=== PATIENT | female | born 1985 | race Caucasian/White ===

== ENCOUNTER 2016-11-01 12:07 | Observation (INO) | payer OTHER, SELFPAY ==
[~2016-11-01] VITALS: Ht 170.2 cm; Wt 105.0 kg
[2016-11-01 13:01] LABS: BLOOD UREA NITROGEN 8 mg/dL (7-18)
[2016-11-01 13:04] LABS: ACETAMINOPHEN < 2 mcg/mL (10-30)
[2016-11-01 15:11] LABS: DAU SCREEN DISCLAIMER
[2016-11-01] MEDS ORDERED: ONDANSETRON ODT 4 MG PO PRN (17:30)
[2016-11-01] MEDS ORDERED: POLYETHYLENE GLYCOL 17 GM PACKET PO PRN (17:30)
[2016-11-01 18:06] VITALS: BP 107/71
[2016-11-01] MEDS ORDERED: ACETAMINOPHEN 325 MG TABLET PO PRN (19:00)
[2016-11-02 06:04] LABS: BLOOD UREA NITROGEN 9 mg/dL (7-18)
[2016-11-02 06:07] LABS: ASPARTATE AMINO TRANSFERASE 18 U/L (15-37)
[2016-11-02] MEDS ORDERED: POTASSIUM CHLORIDE 20 MEQ TAB.ER.PRT PO ONE ×2 (07:30→11:30)
[2016-11-02 08:10] VITALS: BP 115/78
[2016-11-02] MEDS ORDERED: SENNA/DOCUSATE TABLET PO SCH (09:00)
[2016-11-02 19:59] VITALS: BP 138/82
[2016-11-03 06:11] LABS: BLOOD UREA NITROGEN 8 mg/dL (7-18)
[2016-11-03 06:16] LABS: ASPARTATE AMINO TRANSFERASE 17 U/L (15-37)
[2016-11-03 08:29] VITALS: BP 105/72
[2016-11-03] MEDS ORDERED: SENNA/DOCUSATE TABLET PO SCH (09:00)
== END 2016-11-03 15:55 ==
LOC: ED 13:51 → EDIP 17:11 → 3E 17:59
PROVIDERS: ADMIT Hospitalist; ATTEND Hospitalist
DX: O99.341 Other mental disorders complicating pregnancy, first trimester (principal); R45.851 Suicidal ideations; F32.9 Major depressive disorder, single episode, unspecified; F41.0 Panic disorder [episodic paroxysmal anxiety]; O99.511 Diseases of the respiratory system complicating pregnancy, first trimester; J45.909 Unspecified asthma, uncomplicated; Z3A.09 9 weeks gestation of pregnancy
CPT/HCPCS: 36415; 80048; 80053; 80307; 80329; 82040; 83735; 84439; 84443; 84702; 85025; 85610; 99285; G0378; Q0162; 84703; G0480